=== PATIENT | male | born 1975 | race Caucasian/White ===

== ENCOUNTER 2018-10-17 19:04 | Emergency (ER) | payer SELFPAY ==
[~2018-10-17] VITALS: Ht 180.3 cm; Wt 139.7 kg
[2018-10-17 19:06] VITALS: Ht 180.3 cm; Wt 139.7 kg
[2018-10-17 19:41] LABS: BASOPHIL % 1.3 % (0-2); PLATELET COUNT 299 x10^3mcL (130-400); RED CELL DISTRIBUTION WIDTH 13.1 % (11.5-14.5)
[2018-10-17 19:55] LABS: CALCIUM 9.8 mg/dL (8.5-10.1); CARBON DIOXIDE 24.7 mmol/L (21-32); CHLORIDE SERUM 101 mmol/L (98-107); CREATININE SERUM 1.1 mg/dL (0.7-1.3); GFR1 > 60 mL/min; GLUCOSE SERUM 128 mg/dL (74-106); POTASSIUM SERUM 3.3 mmol/L (3.5-5.1); SODIUM SERUM 138 mmol/L (136-145)
[2018-10-17 20:01] LABS: ALKALINE PHOSPHATASE 147 U/L (46-116); ALT/SGPT 51 U/L (16-63); AST/SGOT 23 U/L (15-37); BILIRUBIN TOTAL 0.4 mg/dL (0.20-1.00); LIPASE 94 IU/L (73-393); TOTAL PROTEIN, SERUM 7.9 g/dL (6.4-8.2)
[2018-10-17 21:33] VITALS: BP 168/71
== END 2018-10-17 21:33 | disposition home or self-care (01) ==
LOC: ED 19:04
PROVIDERS: Emergency Medicine
DX: N20.0 Calculus of kidney (principal); I10 Essential (primary) hypertension; E11.9 Type 2 diabetes mellitus without complications
CPT/HCPCS: J1885; J2270; J2405; J7030